=== PATIENT | female | born 1970 | race African-American/Black ===

== ENCOUNTER 2020-01-12 10:36 | Emergency (ER) | payer MEDICARE, MEDICAID, SELFPAY ==
[2020-01-12 10:42] VITALS: BP 178/101; PULSE 98; RESP 20; TEMP 36.3; O2SAT 98
--- NOTE | 2020-01-12 10:53 | ED.GENADULT ---
HPI - General Adult General Chief complaint: Extremity Problem,Nontraumatic Stated complaint: nerve pain Time Seen by Provider: 01/12/20 10:37 Source: patient Mode of arrival: ambulatory Limitations: no limitations History of Present Illness HPI narrative: 49 y/o AA female. PMH includes: See Chart. Presents to clinic today with acute complaints of low back pain, intermittently radiating down LT posterior buttock and thigh, for past 72 hours. She reports a lot of trouble with her sciatic nerve all the time . She denies acute injuries or fall. She is ambulatory in room, gait steady. No loss of lower extremity or bowel/bladder control. She takes [place] for chronic pain, but notes it isn't helping much . She has not yet sought out care from her PCP, although called and is still waiting for them to call back . Pain worse with prolonged sitting or standing. No additional acute c/o upon PE. Related Data Home Medications Medication Instructions Recorded Confirmed albuterol sulfate [Ventolin HFA] INHALATION 01/12/20 alprazolam 01/12/20 amlodipine 01/12/20 baclofen mg 01/12/20 buspirone mg 01/12/20 escitalopram oxalate mg 01/12/20 fluticasone propion-salmeterol INHALATION 01/12/20 [Advair Diskus] hydrocodone-acetaminophen tablet 01/12/20 metformin mg 01/12/20 montelukast mg 01/12/20 naproxen 01/12/20 Allergies Allergy/AdvReac Type Severity Reaction Status Date / Time haloperidol Allergy Severe Verified 06/10/18 09:56 Penicillins Allergy Mild HIVES, Verified 06/10/18 09:56 ITCHING amoxicillin Allergy Unknown HIVES, Verified 06/10/18 09:56 ITCHING Sulfa (Sulfonamide Allergy Unknown HIVES, Verified 06/10/18 09:56 Antibiotics) ITCHING Contrast Media Allergy Unknown HIVES Uncoded 06/10/18 09:56 Review of Systems Review of Systems: Narrative: CONSTITUTIONAL: Denies fever, chills, sweats. EYES: Denies visual changes, redness, discharge. ENT: Denies rhinorrhea, congestion, sore throat, otalgia. CARDIOVASCULAR: Denies chest pain, palpitations, edema. RESPIRATORY: Denies dyspnea, wheezing, cough GASTROINTESTINAL: Denies abdominal pain, nausea, vomiting, diarrhea. GENITOURINARY: Denies dysuria, hematuria, abnormal discharge SKIN: Denies rash or itching. MUSCULOSKELETAL: Back pain, no myalgia. NEUROLOGIC: Denies numbness, or focal weakness. PSYCHIATRIC: Denies anxiety or depression. All systems reviewed & are unremarkable except as noted in HPI and below Exam Narrative: Exam Narrative: GENERAL: This is a well-nourished, well-developed patient, in no apparent distress. Obese. HEAD: normocephalic, atraumatic. EYES: PERRL. Sclera clear/white. Vision is grossly intact. EARS: External ears normal, auditory canals clear and without drainage, TMs normal without perforation. Hearing grossly intact. NOSE: External nose normal with no obvious nasal discharge, nares without redness, no rhinorrhea. THROAT: Mucous membranes moist, posterior pharynx clear. NECK: Neck supple, non-tender without lymphadenopathy, masses or thyromegaly. CARDIOVASCULAR: Regular rate and rhythm without murmurs, gallops, or rubs. Pulses intact BLE. RESPIRATORY: Clear to auscultation. Breath sounds equal bilaterally. No wheezes, rales, or rhonchi. GASTROINTESTINAL: Abdomen soft, non-tender, nondistended. Bowel sounds are active. No guarding. Full abdominal PE slightly limited due to increased body habitus. SKIN: warm, intact with no suspicious lesions or rash, good texture and turgor. NEURO: awake, alert, and oriented to person, place and time. There were no obvious focal neurologic abnormalities. Steady gait. Sensation is intact. No saddle paraesthesia. EXTREMITIES: Normal range of motion. No edema. No calf tenderness. Negative Homans sign bilaterally. MUSCULOSKELETAL: SLR test positive LT at 45 degree. RT SLR negative. No bony deformity, tenderness. ROM fully preserved. BACK: Nontender without deformity or crepitance. No flank tenderness. Gl
== END 2020-01-12 11:14 | disposition home or self-care (01) ==
PROVIDERS: Emergency Provider Nurse Practitioner Adult Health
DX: M54.42 Lumbago with sciatica, left side (principal)
CPT/HCPCS: 99213; G0463

== ENCOUNTER 2020-09-24 16:27 | Emergency (ER) | payer MEDICARE, MEDICAID, SELFPAY ==
[2020-09-24 16:36] VITALS: BP 181/100; PULSE 101; RESP 16; TEMP 37.3; O2SAT 100
[2020-09-24 16:38] VITALS: BP 181/100; PULSE 101; RESP 16; TEMP 37.3; O2SAT 100
--- NOTE | 2020-09-24 16:40 | ED.EAR ---
HPI - Ear Problem General Chief complaint: Ear Stated complaint: EAR PAIN Time Seen by Provider: 09/24/20 16:40 Source: patient and RN notes reviewed Mode of arrival: ambulatory Limitations: no limitations History of Present Illness HPI Narrative: 49-year-old female presents to the [facility] with complaints of right ear pain. Patient states the pain was sudden onset yesterday. Patient takes Percocet however does not taking care of all of her pain. Patient does have a history of hypertension. States that she will take her medication when she gets home. Denies any blurry vision or change in vision. No headaches. Related Data Home Medications Medication Instructions Recorded Confirmed albuterol sulfate [Ventolin HFA] INHALATION 01/12/20 alprazolam 01/12/20 amlodipine 01/12/20 baclofen mg 01/12/20 buspirone mg 01/12/20 escitalopram oxalate mg 01/12/20 fluticasone propion-salmeterol INHALATION 01/12/20 [Advair Diskus] hydrocodone-acetaminophen tablet 01/12/20 metformin mg 01/12/20 montelukast mg 01/12/20 naproxen 01/12/20 diazepam 09/24/20 ergocalciferol (vitamin D2) 09/24/20 omeprazole 09/24/20 oxycodone-acetaminophen 09/24/20 Allergies Allergy/AdvReac Type Severity Reaction Status Date / Time haloperidol Allergy Severe Verified 06/10/18 09:56 Penicillins Allergy Mild HIVES, Verified 06/10/18 09:56 ITCHING amoxicillin Allergy Unknown HIVES, Verified 06/10/18 09:56 ITCHING Sulfa (Sulfonamide Allergy Unknown HIVES, Verified 06/10/18 09:56 Antibiotics) ITCHING Contrast Media Allergy Unknown HIVES Uncoded 06/10/18 09:56 Review of Systems Review of Systems: All systems reviewed & are unremarkable except as noted in HPI and below Constitutional: Constitutional: Reports no additional constitutional complaints, Denies chills and Denies fever(s) Eyes: Eyes: Reports no additional eye complaints, Denies change in vision and Denies photophobia ENT: Reports as per HPI, Denies dizziness, Denies nasal congestion and Denies sore throat Comments: Right ear pain Cardiovascular: Cardiovascular: Reports no additional cardiovascular complaints and Denies chest pain Respiratory: Respiratory: Reports no additional respiratory complaints, Denies cough and Denies dyspnea Musculoskeletal: Musculoskeletal: Reports no additional musculoskeletal complaints Integumentary/Breasts: Skin/Breast: Reports system reviewed and no additional complaints, except as docu Neurologic: Reports system reviewed and no additional complaints, except as documented, Denies dizziness, Denies headache(s), Denies focal weakness, Denies numbness and Denies weakness Psychiatric: Psychiatric: Reports no additional psychiatric complaints Allergic/Immunologic: Allergic/Immunologic: Reports no additional allergic/immunologic complaints PMFSH Comments At the time of my signature, I reviewed and agree with the nursing past medical, surgical, social, and family history. There is no relevant family history pertinent to the patient complaint. Exam Const: General: alert and ill appearing acutely Nutritional Appearance: well nourished and obese Orientation/consciousness: patient oriented x3 HENMT: Head: normal to inspection Ears: external ears normal, TM normal on the left, EAC's normal and TM abnormal bulging on the right and erythematous on the right General nose exam: Normal external nose present and Normal nares present Face and sinus: normal facial exam Mouth: Yes Normal oral and palatal mucosa present Eyes: Conjunctivae: conjunctivae normal Pupils: Equal, round and reactive pupils present Neck: Neck: normal visual inspection, no lymphadenopathy and no meningeal signs Chest: Chest palpation & inspection: normal inspection of the chest Resp: Effort & Inspection: normal respiratory effort Auscultation: clear to auscultation bilaterally Cardio: Rate: regular rate Rhythm: regular rhythm Back/Spine/Pelvis: Back
[2020-09-24 16:54] VITALS: BP 184/96
== END 2020-09-24 16:54 | disposition home or self-care (01) ==
PROVIDERS: Emergency Provider Nurse Practitioner
DX: H66.001 Acute suppurative otitis media without spontaneous rupture of ear drum, right ear (principal); I10 Essential (primary) hypertension; J45.909 Unspecified asthma, uncomplicated; K21.9 Gastro-esophageal reflux disease without esophagitis; M19.90 Unspecified osteoarthritis, unspecified site; E11.9 Type 2 diabetes mellitus without complications
CPT/HCPCS: 99213; G0463

== ENCOUNTER 2020-12-12 11:42 | Emergency (ER) | payer MEDICARE, MEDICAID, SELFPAY ==
--- NOTE | ~2020-12-12 | XR_ITS ---
EXAMINATION: XR chest 2V DATE: 12/12/2020 13:50 INDICATION: Left shoulder pain. Fall. TECHNIQUE: Frontal and lateral views of the chest were obtained. COMPARISON: Chest 2 views 12/15/2013 FINDINGS: The chest demonstrates clear lungs without pneumonia, pleural effusion, or pneumothorax. Th e heart size is normal. IMPRESSION: 1. No acute cardiopulmonary disease. Reviewed, dictated and finalized at location A.
--- NOTE | ~2020-12-12 | XR_ITS ---
XR shoulder LT min 2V DATE: 12/12/2020 13:50 INDICATION: Left shoulder pain following injury from fall TECHNIQUE: 4 views COMPARISON: None FINDINGS: No fracture or dislocation, periosteal reaction or bone destruction. No abnormal soft tiss ue calcification. IMPRESSION: No significant abnormality Reviewed, dictated and finalized at location A. IMPRESSION: No significant abnormality
--- NOTE | ~2020-12-12 | CT_ITS ---
EXAMINATION: CT thoracic spine wo con DATE: 12/12/2020 14:04 INDICATION: Thoracic back pain. Fall. TECHNIQUE: Computed tomography (CT) of the thoracic spine was performed without intravenous contrast. Automated exposure control and iterative reconstruction technique were employed. The dose-length pro duct was 1424.10 mGy-cm. COMPARISON: None FINDINGS: There is 4 degrees levocurvature of thoracic spine. T4 is a butterfly segment. There is mil d chronic anterior wedging of T5, T6, and L1 vertebral bodies. There is mildly decreased disc height from T5-T6 through T10-T11. There is multilevel mild facet joint osteoarthritis. There is no neural f oraminal stenosis or central canal stenosis. IMPRESSION: 1. No fracture. 2. Mild thoracic spondylosis. Reviewed, dictated and finalized at location A.
--- NOTE | ~2020-12-12 | XR_ITS ---
EXAMINATION: XR knee LT min 4V DATE: 12/12/2020 13:51 INDICATION: Left knee pain. TECHNIQUE: 4 views of left knee were obtained. COMPARISON: Left knee radiographs 04/07/2004 FINDINGS: Bone alignment is normal. No fracture. There is moderate osteoarthritis of medial and tinsley lofemoral compartments and mild osteoarthritis of lateral compartment. There is a small knee joint ef fusion. IMPRESSION: 1. Moderate left knee osteoarthritis. 2. Small left knee joint effusion. Reviewed, dictated and finalized at location A.
--- NOTE | ~2020-12-12 | XR_ITS ---
EXAMINATION: XR hip LT min 3V w AP pelvis DATE: 12/12/2020 13:50 INDICATION: Left hip pain. Fall. TECHNIQUE: An anteroposterior view of the pelvis and 3 views of left hip were obtained. COMPARISON: None. FINDINGS: Bone alignment is normal. No fracture. There is mild osteoarthritis of the hips. IMPRESSION: 1. Mild osteoarthritis of the hips. Reviewed, dictated and finalized at location A.
--- NOTE | ~2020-12-12 | CT_ITS ---
EXAMINATION: CT cervical spine wo con DATE: 12/12/2020 14:03 INDICATION: Neck pain post fall TECHNIQUE: Computed tomography (CT) of the cervical spine was performed without intravenous contrast. Automated exposure control and iterative reconstruction technique were employed. The dose-length pro duct was 551.18 mGy-cm. COMPARISON: None FINDINGS: Straightening of the normal cervical lordosis likely positional related to the presence of a cervical collar. No spondylolisthesis or facet subluxation. Vertebral body heights are normal. No fracture. M ild disc height loss at C4-C5. Minimal to mild cervical facet osteoarthritis most prominent on the le ft at C3-C4. Minimal ossification at the posterior longitudinal ligament at C6-C7 resulting in minima l central canal stenosis at this level. No significant neural foraminal stenosis. Visualized cervical soft tissues and apices of lungs are unremarkable. IMPRESSION: 1. Minimal to mild cervical spondylosis. No acute osseous abnormality. Reviewed, dictated and finalized at location B.
[2020-12-12 12:09] VITALS: BP 158/104; PULSE 103; RESP 20; TEMP 36.2; O2SAT 100
--- NOTE | 2020-12-12 13:18 | PC.NURSE ---
Pt to xray
--- NOTE | 2020-12-12 13:37 | PC.NURSE ---
Pt still in imaging.
--- NOTE | 2020-12-12 13:37 | ED.FALL ---
HPI - Fall General Chief Complaint: Fall Stated Complaint: fall - left leg & shoulder injury Time Seen by Provider: 12/12/20 12:31 Source: patient Mode of arrival: wheelchair Limitations: no limitations History of Present Illness HPI Narrative: This is a 50 year old female that presents to the ER after a fall today. Reports she was walking down the stairs and slipped and fell. Reports she fell down about 4 steps. Denies hitting her head or loss of consciousness. Reports since she has had left shoulder, left knee and left hip pain. Also reports neck and mid back pain. Reports history of COPD and that she is currently having some wheezing as well. Reports her daughter was at work and unable to come help her right away, so she sat on the floor for a couple hours. Denies vision changes, vomiting, numbness, or weakness. Related Data Home Medications Medication Instructions Recorded Confirmed albuterol sulfate [Ventolin HFA] INHALATION 01/12/20 10/11/20 alprazolam 01/12/20 10/11/20 amlodipine 01/12/20 10/11/20 buspirone mg 01/12/20 10/11/20 escitalopram oxalate mg 01/12/20 10/11/20 fluticasone propion-salmeterol INHALATION 01/12/20 10/11/20 [Advair Diskus] hydrocodone-acetaminophen tablet 01/12/20 10/11/20 metformin mg 01/12/20 10/11/20 montelukast mg 01/12/20 10/11/20 naproxen 01/12/20 10/11/20 diazepam 09/24/20 10/11/20 ergocalciferol (vitamin D2) 09/24/20 10/11/20 omeprazole 09/24/20 10/11/20 oxycodone-acetaminophen 09/24/20 10/11/20 esomeprazole magnesium 40 mg 40 mg PO DAILY 09/28/20 10/11/20 capsule,delayed release Allergies Allergy/AdvReac Type Severity Reaction Status Date / Time haloperidol Allergy Severe Unknown Verified 10/11/20 08:03 Penicillins Allergy Mild HIVES, Verified 10/11/20 08:03 ITCHING amoxicillin Allergy Unknown HIVES, Verified 10/11/20 08:03 ITCHING Sulfa (Sulfonamide Allergy Unknown HIVES, Verified 10/11/20 08:03 Antibiotics) ITCHING Contrast Media Allergy Unknown HIVES Uncoded 10/11/20 08:03 Review of Systems Review of Systems: CONSTITUTIONAL: Denies fever EYES: Denies visual changes CARDIOVASCULAR: Denies chest pain RESPIRATORY: Denies dyspnea. GASTROINTESTINAL: Denies vomiting MUSCULOSKELETAL: Reports back pain, joint pain, and myalgia. NEUROLOGIC: Denies numbness, or weakness. All systems reviewed & are unremarkable except as noted in HPI and below PMFSH Past Medical History Medical History (Updated 12/12/20 @ 15:25 by Zora Mckeon PA-C) Anxiety COPD (chronic obstructive pulmonary disease) GERD (gastroesophageal reflux disease) Hypertension Family History Family History Father Lung cancer Hypertension Mother Hypertension Depression Heart disease Thyroid disorder Sibling Hypertension Depression Heart disease Thyroid disorder Other Hypertension Grandparent Carcinoma of colon Hypertension Grandparent Hypertension Social History Social History Tobacco type: cigarettes Alcohol intake: never Substance use: never Substance use type: does not use Exam Narrative: GENERAL: Well-appearing, obese, and in no acute distress. HEAD: Normocephalic, atraumatic. EYES: PERRLA and EOMI. ENT: Nares clear, no rhinorrhea or epistaxis. Mucous membranes moist. Oropharynx without tonsillar hypertrophy exudate or other lesions. Bilateral TMs pearly jackson non-bulging NECK: Supple. No adenopathy or masses. Tender to palpation of midline cervical spine CHEST: Clear to auscultation. No respiratory distress. No wheezes rales or rhonchi HEART: Regular rate and rhythm. No murmur heard. Normal peripheral pulses. BACK: Tender to palpation of midline thoracic spine. Nontender to palpation of midline lumbar spine EXTREMITIES: Normal range of motion. No edema or obvious deformity. Strength equal in bilateral upper and lower extremities (5/
[2020-12-12 14:00] LABS: Basophils Absolute Auto 0.1 K/mm3 (0.0-0.1); Basophils Percent Auto 0.7 % (0.2-1.2); Eosinophils Absolute Auto 0.1 K/mm3 (0-0.3); Eosinophils Percent Auto 1.1 % (0-4.4); Hematocrit 41.9 % (37.0-47.0); Immature Granulocyte Absolute 0.02 K/mm3 (0.00-0.031); Immature Granulocyte Percent A 0.3 % (0-0.5); Lymphocytes Absolute Auto 3.29 K/mm3 (0.9-3.2); Mean Corpuscular Hemoglobin 25.6 pg (26-34); Mean Corpuscular Volume 82.6 fl (80-100); Mean Platelet Volume 10.4 fl (7.4-10.4); Monocytes Absolute Auto 0.5 K/mm3 (0.1-0.6); Monocytes Percent Auto 6.6 % (2.6-8.5); Neutrophils Absolute Auto 3.4 K/mm3 (1.3-6.7); Neutrophils Percent Auto 46.3 % (45.5-73.1); Platelet Count Result 378 k/mm3 (150-375); Red Blood Count 5.07 M/mm3 (4.2-5.4); Red Cell Distribution Width 15.9 % (11.5-14.5); White Blood Count 7.3 K/mm3 (4.5-10.0)
[2020-12-12 14:08] LABS: Anion Gap 10 mmol/L (8-16); Blood Urea Nitrogen 5 mg/dL (7-17); Calcium 9.5 mg/dL (8.4-10.2); Carbon Dioxide 23 mmol/L (22-30); Chloride 107 mmol/L (98-107); Creatine Kinase 179 U/L (30-135); Estimated CRCL calculation 115 ml/min; Estimated Glomerular Filt Rate > 60; Glucose 94 mg/dL (65-110); Potassium 3.8 mmol/L (3.4-5.0); Sodium 140 mmol/L (137-145)
[2020-12-12] MEDS: ALBUTEROL SULFATE (*SP) INHALER 1 PUFF (14:24)
[2020-12-12] MEDS: ALBUTEROL SULFATE (*SP) AEROSOL 1 PUFF 4 PUFF INHALATION (14:24)
[2020-12-12] MEDS: ACETAMINOPHEN 500 MG TABLET 1000 MG PO (14:30)
[2020-12-12 15:40] VITALS: BP 132/78; PULSE 82; RESP 18; O2SAT 96
== END 2020-12-12 15:41 | disposition home or self-care (01) ==
PROVIDERS: Physician Assistant; Emergency Provider Emergency Medicine
DX: S83.92XA Sprain of unspecified site of left knee, initial encounter (principal); J44.9 Chronic obstructive pulmonary disease, unspecified; I10 Essential (primary) hypertension; E11.9 Type 2 diabetes mellitus without complications; F41.9 Anxiety disorder, unspecified; K21.9 Gastro-esophageal reflux disease without esophagitis; Z79.84 Long term (current) use of oral hypoglycemic drugs; F17.210 Nicotine dependence, cigarettes, uncomplicated; M47.814 Spondylosis without myelopathy or radiculopathy, thoracic region; M47.812 Spondylosis without myelopathy or radiculopathy, cervical region; W10.8XXA Fall (on) (from) other stairs and steps, initial encounter
CPT/HCPCS: 36415; 71046; 72125; 72128; 73030; 73502; 73564; 80048; 82550; 85025; 99284; A9270; L0140

== ENCOUNTER 2021-03-09 13:02 | Emergency (ER) | payer MEDICARE, MEDICAID, SELFPAY ==
[2021-03-09 13:14] VITALS: BP 160/88; PULSE 105; RESP 20; TEMP 35.7; O2SAT 99
[2021-03-09 15:19] VITALS: BP 160/93; PULSE 87; RESP 18; TEMP 36.3; O2SAT 97
--- NOTE | 2021-03-09 15:31 | PC.NURSE ---
Pt states she is going to go because her daughter has to go to work and she is her only ride. Pt ambulated to the exit with a walker with no difficulty
== END 2021-03-09 15:31 | disposition left against medical advice (07) ==
DX: R07.81 Pleurodynia (principal)
CPT/HCPCS: 99199

== ENCOUNTER 2021-10-02 11:13 | Inpatient (IN) | payer MEDICARE, MEDICAID, SELFPAY ==
[2021-10-02] VITALS (16 sets, daily range): BP systolic 146–192; BP diastolic 83–128; PULSE 58–646; RESP 18–26; TEMP 36.4–37.6; O2SAT 96–100; BMI 60.0
--- NOTE | ~2021-10-02 | XR_ITS ---
EXAMINATION: XR chest 1V portable DATE: 10/02/2021 13:26 INDICATION: Chest pain and cough. COVID. TECHNIQUE: frontal and lateral views of the chest were obtained. COMPARISON: Chest radiograph dated 12/12/2020 FINDINGS: The lungs remain clear with no focal airspace opacities, pulmonary edema, pleural effusion or pneumot horax. The cardiomediastinal silhouette is normal. Visualized bones and soft tissues are unremarkable . IMPRESSION: 1. No acute cardiopulmonary disease. Reviewed, dictated and finalized at location A.
--- NOTE | 2021-10-02 12:40 | ECG_ITS ---
Measurements Intervals [place] Rate: 62 P: 109 ME: 164 QRS: 186 QRSD: 106 T: 186 QT: 408 QTc: 416 Interpretive Statements SINUS RHYTHM LIMB LEAD REVERSAL DELAYED PRECORDIAL R/S TRANSITION BORDERLINE ST-T WAVE ABNORMALITY- ANTEROLAT/INF LEADS BORDERLINE ECG Electronically Signed On 10-02-2021 13:05:02 CDT by Kingsley Esparza D.O.
--- NOTE | 2021-10-02 12:52 | PC.NURSE ---
patient is declining the IV at this time, only requests her blood drawn and no IV placed at this time.
--- NOTE | 2021-10-02 13:10 | ED.GENADULT ---
HPI - General Adult General Chief complaint: Upper Respiratory Infection Stated complaint: covid+, chest pain with breathing Time Seen by Provider: 10/02/21 12:40 Source: RN notes reviewed History of Present Illness HPI narrative: Patient presents emergency room from home for COVID-19. Patient states she tested positive for COVID-19 approximately 1 week ago. States that she took Paxlovid following the end of her treatment she began to feel sick again states that she has been having wheezing throughout her lungs and has been using her inhaler at home with minimal relief. Patient also states that she has been having some mild chest pain with coughing and deep inspiration she denies any fevers or chills abdominal pain nausea vomiting or any other symptoms Related Data Home Medications Medication Instructions Recorded Confirmed albuterol sulfate 90 mcg/actuation inhalation 01/12/20 10/11/20 aerosol inhaler (Ventolin HFA) alprazolam 0.25 mg tablet 01/12/20 10/11/20 amlodipine 10 mg tablet 01/12/20 10/11/20 fluticasone 500 mcg-salmeterol 50 inhalation 01/12/20 10/11/20 mcg/dose blistr powdr for inhalation (Advair Diskus) hydrocodone 10 mg-acetaminophen tablet 01/12/20 10/11/20 325 mg tablet metformin 850 mg tablet mg 01/12/20 10/11/20 montelukast 10 mg tablet mg 01/12/20 10/11/20 diazepam 5 mg tablet 09/24/20 10/11/20 ergocalciferol (vitamin D2) 1,250 09/24/20 10/11/20 mcg (50,000 unit) capsule omeprazole 20 mg capsule,delayed 09/24/20 10/11/20 release Allergies Allergy/AdvReac Type Severity Reaction Status Date / Time haloperidol Allergy Severe Unknown Verified 10/02/21 12:39 Penicillins Allergy Mild HIVES, Verified 10/02/21 12:39 ITCHING amoxicillin Allergy Unknown HIVES, Verified 10/02/21 12:39 ITCHING Sulfa (Sulfonamide Allergy Unknown HIVES, Verified 10/02/21 12:39 Antibiotics) ITCHING Contrast Media Allergy Unknown HIVES Uncoded 10/02/21 12:39 Review of Systems Review of Systems: Gen.: Denies fevers or chills ENT: Denies congestion Respiratory: reports COVID-19 and cough CV: Reports chest pain with coughing and deep inspiration GI: Denies abdominal pain nausea, emesis or diarrhea Musculoskeletal: Denies back pain or muscle pain Neuro: Denies numbness, tingling, weakness or focal weakness Skin: Denies rash Except as documented, all other systems reviewed and negative [facility] Past Medical History Medical History Anxiety COPD (chronic obstructive pulmonary disease) GERD (gastroesophageal reflux disease) Hypertension Family History Family History Father Lung cancer Hypertension Mother Hypertension Depression Heart disease Thyroid disorder Sibling Hypertension Depression Heart disease Thyroid disorder Other Hypertension Grandparent Carcinoma of colon Hypertension Grandparent Hypertension Social History Social History Tobacco type: cigarettes Alcohol intake: never Substance use: never Substance use type: does not use Exam Narrative: APPEARANCE: No acute distress, nontoxic, resting in bed EYES: EOMI HEENT: Normocephalic, atraumatic, OMM RESPIRATORY: No respiratory distress wheezing throughout the bilateral upper lung christine with decreased breath sounds in the bases CARDIOVASCULAR: Regular rate and rhythm without murmurs rubs or gallops. ABDOMINAL: Soft, nontender, nondistended, no rebound or guarding MUSCULOSKELETAl: Moves all extremities. No clubbing, cyanosis or edema. NEURO: Awake and alert. Following commands, speech normal, no focal deficits SKIN:: Warm, dry. No rashes lesions or abrasions PSYCHIATRIC: Normal affect/mood, Course Course Emergency Course: Patient given breathing treatments in ED states. Still states she is feeling short of breath. Wheezing noted i
[2021-10-02 13:34] LABS: Basophils Percent Auto 0.2 % (0.2-1.2); Hematocrit 42.5 % (37.0-47.0); Hemoglobin 12.7 g/dL (12.0-15.0); Immature Granulocyte Absolute 0.04 K/mm3 (0.00-0.031); Immature Granulocyte Percent A 0.4 % (0-0.5); Lymphocytes Absolute Auto 3.84 K/mm3 (0.9-3.2); Lymphocytes Percent Auto 35.4 % (18.3-44.2); Mean Corpuscular HGB Conc 29.9 g/dl (32-36); Mean Corpuscular Hemoglobin 25.1 pg (26-34); Mean Corpuscular Volume 84.2 fl (80-100); Mean Platelet Volume 9.9 fl (7.4-10.4); Monocytes Absolute Auto 0.9 K/mm3 (0.1-0.6); Monocytes Percent Auto 7.8 % (2.6-8.5); Neutrophils Absolute Auto 6.1 K/mm3 (1.3-6.7); Neutrophils Percent Auto 56.2 % (45.5-73.1); Platelet Count Result 418 k/mm3 (150-375); Red Blood Count 5.05 M/mm3 (4.2-5.4); Red Cell Distribution Width 15.5 % (11.5-14.5); White Blood Count 10.9 K/mm3 (4.5-10.0)
[2021-10-02] MEDS: IPRATROPIUM BR 0.02% INH SOLN 0.5 MG/2.5 ML VIAL INHALATION ×3 (13:44→20:23)
[2021-10-02] MEDS: ALBUTEROL SULFATE NEB 2.5 MG/3 ML INH 5 MG INHALATION ×3 (13:44→20:23)
[2021-10-02 13:45] LABS: Partial Thromboplastin Time 24.1 SECONDS (22.3-36.8); Prothrombin Time 12.3 Seconds (11.1-14.7)
[2021-10-02 13:50] LABS: Hypochromasia 1+ (NORMAL); Microcytosis 1+ (NORMAL); Ovalocytes 1+ (NORMAL); Poikilocytosis 1+ (NORMAL); Target Cells 1+ (NORMAL)
[2021-10-02 13:54] LABS: Troponin I < 0.012 ng/mL (0.000-0.034)
[2021-10-02 14:07] LABS: D Dimer 0.35 ug/mL (<0.48)
[2021-10-02 14:23] LABS: Alanine Aminotransferase 30 U/L (6-35); Albumin Level 4.4 g/dL (3.5-5.1); Alkaline Phosphatase 82 U/L (38-126); Anion Gap 8 mmol/L (8-16); Aspartate Amino Transferase 25 U/L (14-36); Bilirubin,Total 0.3 mg/dL (0.2-1.3); Blood Urea Nitrogen 11 mg/dL (7-17); CRP < 0.5 mg/dL (<1.0); Calcium 8.9 mg/dL (8.4-10.2); Carbon Dioxide 30 mmol/L (22-30); Chloride 103 mmol/L (98-107); Estimated CRCL calculation 107 ml/min; Estimated Glomerular Filt Rate > 60; Glucose 104 mg/dL (65-110); Lactate Dehydrogenase 384 U/L (313-618); Lipase 48 U/L (23-300); Potassium 3.8 mmol/L (3.4-5.0); Sodium 141 mmol/L (137-145)
[2021-10-02] MEDS: SODIUM CHLORIDE 0.9% IV 1,000 ML 999 ML IV CONT (15:00)
[2021-10-02] MEDS: methylPREDNISolone SOD SUCC 125 MG VIAL IV PUSH (15:00)
[2021-10-02 16:47] LABS: Troponin I < 0.012 ng/mL (0.000-0.034)
--- NOTE | 2021-10-02 17:37 | PC.NURSE ---
Patient's walking pulse ox on Room Air is 96%. patient walked with cane at this time. EDP aware.
--- NOTE | 2021-10-02 18:30 | PM.IMHP ---
H&P: HPI History of Present Illness Date/Time: 10/02/21 18:30 <Tracey Goldsmith PA-C - Last Filed: 10/02/21 22:54> Chief Complaint: Shortness of breath. <Tracey Goldsmith PA-C - Last Filed: 10/02/21 22:54> Narrative: This is a 50-year-old female smoker with COPD, sleep apnea, hypertension, and prediabetes who presented to the emergency department from home for evaluation shortness of breath. She was diagnosed with COVID last week and was prescribed Paxlovid on 09/25/2021. She felt quite a bit better the 1st 3 days after starting the drug however her symptoms rebounded for a few days before improving once again. Her headache, body aches, and fever have resolved though she continues to have a cough that is occasionally productive of clear phlegm and significant wheezing as well as progressive dyspnea on lesser and lesser exertion. Chest x-ray today was normal and she is still testing positive for SARS-CoV-2 by PCR. She feels a bit better after receiving a dose of Solu-Medrol and nebulizer though she continues to wheeze and she is being admitted in this setting for further treatment. <Tracey Goldsmith PA-C - Last Filed: 10/02/21 22:54> Review of Systems Review of Systems: Twelve systems were reviewed. COVID symptoms as detailed above are improving. She has some mild chest tightness with her shortness of breath. The pain is not pleuritic. She denies syncope and presyncope. No lower extremity edema or calf pain. No history of venous thromboembolism. Appetite has been decreased since being diagnosed with COVID however she is hungry at this time. No vomiting. Except as documented, all other systems were reviewed and are negative. <Tracey Goldsmith PA-C - Last Filed: 10/02/21 22:54> [facility] Past Medical History Medical History: Medical History (Updated 10/02/21 @ 22:47 by Tracey Goldsmith PA-C) Anxiety Chronic obstructive pulmonary disease Gastroesophageal reflux disease Hypertension Morbid obesity Obstructive sleep apnea Prediabetes Tobacco abuse <Tracey Goldsmith PA-C - Last Filed: 10/02/21 22:54> Surgical History Surgical History: Surgical History (Updated 10/02/21 @ 22:43 by Tracey Goldsmith PA-C) History of arthroscopy of both knees History of cholecystectomy History of detached retina repair History of endometrial ablation History of salpingectomy Related to ectopic . History of tubal ligation <Tracey Goldsmith PA-C - Last Filed: 10/02/21 22:54> Family History Family History: Family History Father Lung cancer Hypertension Mother Hypertension Depression Heart disease Thyroid disorder Sibling Hypertension Depression Heart disease Thyroid disorder Other Hypertension Grandparent Carcinoma of colon Hypertension Grandparent Hypertension <Tracey Goldsmith PA-C - Last Filed: 10/02/21 22:54> Social History Social History: Social History (Updated 10/02/21 @ 22:44 by Tracey Goldsmith PA-C) Social History: Surrogate medical decision maker: Linda Conley, daughter. Code status: Smoking packs per day: 0.5 Smoking cigarettes per day: 10.0 Years smoked: 25 Smoking pack-years: 12.50 Smoking status: Current every day smoker Tobacco type: cigarettes Alcohol intake: never Substance use: never Substance use type: does not use Living arrangements: with family Additional occupation/education comments: Disabled. Spiritual care concerns: No <Tracey Goldsmith PA-C - Last Filed: 10/02/21 22:54> Meds Home Medications and Allergies Home medications: Home Medications Medication Instructions Recorded Confirmed Type albuterol sulfate 90 mcg/actuation 2 inh inhalation QID PRN SOB 01/12/20 10/02/21 History aerosol inhaler (Ventolin HFA) fluticasone 500 mcg-salmeterol 50 1 inh inhalation 2XD 01/12/20 10/02/21 History mcg/dose blist
[2021-10-02 19:01] LABS: SARS-CoV-2 RNA PCR Positive
--- NOTE | 2021-10-02 20:24 | ADMGEN ---
This patient, Fariba Conley, was admitted to Medical Room 342-01. Patient/family oriented to hospital policies and general routines including ID bracelet, bed and alarms, visiting hours, pain management, procedures, bathroom and other care routines, personal items, smoking policy, room service/diet, and visiting hours. Information on how to activate the Rapid Response Team has been discussed. Patient/Family are encouraged to report perceived risks to care and to ask questions if they do not understand what they are told or what they should do.
[2021-10-02 20:51] LABS: Troponin I < 0.012 ng/mL (0.000-0.034)
[2021-10-03] VITALS (11 sets, daily range): BP systolic 175–196; BP diastolic 79–92; PULSE 56–80; RESP 20–28; TEMP 36.4–36.8; O2SAT 97–99
[2021-10-03] MEDS: methylPREDNISolone SOD SUCC 125 MG VIAL 60 MG IV PUSH ×3 (00:38→14:01)
[2021-10-03] MEDS: IPRATROPIUM BR 0.02% INH SOLN 0.5 MG/2.5 ML VIAL INHALATION ×4 (02:30→20:45)
[2021-10-03] MEDS: ALBUTEROL SULFATE NEB 2.5 MG/3 ML INH 5 MG INHALATION ×4 (02:30→20:45)
[2021-10-03] MEDS: ACETAMINOPHEN 325 MG TABLET 650 MG PO (05:33)
[2021-10-03 05:46] LABS: Basophils Percent Auto 0.1 % (0.2-1.2); Hematocrit 41.8 % (37.0-47.0); Hemoglobin 13.1 g/dL (12.0-15.0); Immature Granulocyte Absolute 0.08 K/mm3 (0.00-0.031); Immature Granulocyte Percent A 0.7 % (0-0.5); Lymphocytes Percent Auto 22.8 % (18.3-44.2); Mean Corpuscular HGB Conc 31.3 g/dl (32-36); Mean Corpuscular Hemoglobin 25.6 pg (26-34); Mean Corpuscular Volume 81.6 fl (80-100); Mean Platelet Volume 9.9 fl (7.4-10.4); Monocytes Absolute Auto 0.1 K/mm3 (0.1-0.6); Monocytes Percent Auto 1.1 % (2.6-8.5); Neutrophils Absolute Auto 8.6 K/mm3 (1.3-6.7); Neutrophils Percent Auto 75.3 % (45.5-73.1); Platelet Count Result 434 k/mm3 (150-375); Red Blood Count 5.12 M/mm3 (4.2-5.4); Red Cell Distribution Width 15.1 % (11.5-14.5); White Blood Count 11.4 K/mm3 (4.5-10.0)
[2021-10-03 06:02] LABS: Alanine Aminotransferase 29 U/L (6-35); Albumin Level 4.5 g/dL (3.5-5.1); Alkaline Phosphatase 68 U/L (38-126); Anion Gap 12 mmol/L (8-16); Aspartate Amino Transferase 26 U/L (14-36); Bilirubin,Total 0.5 mg/dL (0.2-1.3); Blood Urea Nitrogen 14 mg/dL (7-17); Calcium 9.6 mg/dL (8.4-10.2); Carbon Dioxide 24 mmol/L (22-30); Chloride 104 mmol/L (98-107); Estimated CRCL calculation 145 ml/min; Estimated Glomerular Filt Rate > 60; Glucose 136 mg/dL (65-110); Potassium 5.1 mmol/L (3.4-5.0); Sodium 140 mmol/L (137-145)
[2021-10-03] MEDS: FLUTICASONE/SALMETEROL 230-21 MCG INHALER 1 PUFF 2 PUFF INHALATION (07:48)
[2021-10-03 09:00] LABS: Glucose Point of Care 152 mg/dl (65-105)
[2021-10-03] MEDS: PANTOPRAZOLE 40 MG TABLET PO (10:11)
[2021-10-03] MEDS: guaiFENesin 12 HR 600 MG TABCR PO ×2 (10:11→21:50)
[2021-10-03] MEDS: MONTELUKAST SODIUM 10 MG TABLET PO (10:11)
--- NOTE | 2021-10-03 10:33 | PM.IMPN ---
Progress Note: A&P Assessment and Plan (1) COPD exacerbation: Code(s): J44.1 - Chronic obstructive pulmonary disease with (acute) exacerbation Status: Acute Assessment and Plan: Precipitated by ongoing tobacco abuse and COVID-19. Continue scheduled bronchodilators and Solu-Medrol. 10/03: Improving on Solu-Medrol 60 mg Q 8, will transition to prednisone 60 mg and taper from there starting tomorrow, will also start patient on a LAMA, Incruse Ellipta, and continue outpatient Advair, recommend outpatient PFTs, cont mucinex prn and nebulizers. Consult to pulmonology placed for PFTs and follow up. (2) COVID-19: Code(s): U07.1 - COVID-19 Status: Acute Assessment and Plan: She completed a course of Paxlovid yesterday. No evidence of pneumonia on imaging. Inflammatory markers are reassuring. 10/03: Would likely benefit from 10 day course of decadron, will start tomorrow as day 3 since she received solumedrol yesterday and today. (3) Tobacco abuse: Code(s): Z72.0 - Tobacco use Status: Acute Assessment and Plan: Smoking cessation is imperative and was discussed. She declines the need for a nicotine patch. (4) Hypertension: Code(s): I10 - Essential (primary) hypertension Status: Acute Assessment and Plan: Blood pressures were reviewed and they have been running high. We will continue with her antihypertensives and monitor closely, making adjustments if needed. 10/03: Currently on Norvasc 10 mg daily, based on A1c, would recommend a combination of lisinopril and hydrochlorothiazide instead, especially if patient has bilateral lower extremity lymphedema. Will d/c norvasc and start lisinopril/HCTZ. (5) Prediabetes: Code(s): R73.03 - Prediabetes Status: Acute Assessment and Plan: Initiate sliding scale insulin, Accu-Cheks, and hypoglycemic protocol. 10/03: A1c was 5.7, will d/c accuchecks and SSI per patient request, check BG once daily with am BMPs since patient is on steroids Subjective Date/time seen: 10/03/21 10:33 Interval history: Patient sitting up, eating. She is somewhat dyspneic with conversation and eating. She states she feels a little better than when she came in but still quite short of breath.? No overnight events noted.? No chest pain.? No nausea, vomiting or diarrhea.? No fevers or chills. Review of Systems Review of Systems: ?12 point review of systems was assessed and was negative except as noted in the HPI Exam Narrative: General:? No acute distress, alert and oriented per baseline HEENT:? Atraumatic, normocephalic, mucous membranes moist CV:? Regular rate and rhythm, S1, S2 Lungs:? Poor air entry throughout, very tight airways with significant inspiratory and expiratory wheezing Abdomen:? Soft, nontender, nondistended Extremities:? Normal to inspection, bilateral lower extremity nonpitting edema noted Skin:? No rashes noted, no lesions or wounds seen Psych:? Euthymic, normal affect Objective Data Vital Signs Vital Signs: Vital Signs - 24 hr 10/02/21 11:23 10/02/21 12:45 10/02/21 12:50 Temperature 99.6 F 97.6 F Pulse Rate 89 67 Respiratory Rate 18 23 H Blood Pressure 169/86 H 154/93 H Pulse Oximetry 100 98 99 Oxygen Delivery Room Air 10/02/21 13:43 10/02/21 13:57 10/02/21 14:00 Temperature Pulse Rate 76 62 70 Respiratory Rate 26 H 24 H 18 Blood Pressure 146/94 H Pulse Oximetry 97 Oxygen Delivery 10/02/21 15:04 10/02/21 13:01 10/02/21 15:04 Temperature Pulse Rate 64 74 64 Respiratory Rate 26 H 23 H 24 H Blood Pressure 192/90 H 146/128 H 192/90 H Pulse Oximetry 97 97 Oxygen Delivery 10/02/21 17:00 10/02/21 17:14 10/02/21 17:32 Temperature Pulse Rate 68 60 69 Respiratory Rate 18 20 20 Blood Pressure 181/94 H Pulse Oximetry 97 Oxygen Delivery 10/02/21 20:03 10/02/21 20:35 10/02/21 20:44 Temperature 98.1 F Pulse Rate 64 58
[2021-10-03 11:08] LABS: Hemoglobin A1C 5.7 % (<5.7)
[2021-10-03] MEDS: ERGOCALCIFEROL 50,000 UNIT CAPSULE 50000 UNITS PO (11:47)
[2021-10-03] MEDS: amLODIPine BESYLATE 5 MG TABLET 10 MG BY MOUTH (11:47)
[2021-10-03 12:05] LABS: Glucose Point of Care 146 mg/dl (65-105)
--- NOTE | 2021-10-03 12:08 | PC.NURSE ---
Patient is not compliant with medications. Patient refused lovenox injection this morning and only wanted to take half of her amlodipine and metformin. Development Team Lead educated patient on medication compliance and the importance of these 3 medications. Patient still refused the lovenox injection but took all of the other medications.
[2021-10-03] MEDS: HYDROcodone/acetaminophen (*CRX) 10-325 MG TABLET 1 TAB PO (14:00)
--- NOTE | 2021-10-03 14:22 | PC.NURSE ---
Parks Recreation Coordinator called Hospitalist Antonella and left voicemail regarding patients elevated blood pressure. Will call again in 15 minutes.
[2021-10-03] MEDS: BENZONATATE 100 MG CAPSULE 200 MG PO (17:25)
[2021-10-03] MEDS: hydroCHLOROthiazide 12.5 MG CAPSULE PO (17:25)
[2021-10-03] MEDS: FLUTICASONE/SALMETEROL 115-21 MCG INHALER 1 PUFF 2 PUFF INHALATION (20:58)
[2021-10-03] MEDS: hydrALAZINE HCL 20 MG/ML VIAL 10 MG IV PUSH (22:34)
[2021-10-04] VITALS (7 sets, daily range): BP systolic 151–160; BP diastolic 79–88; PULSE 73–88; RESP 20–24; TEMP 36.7–36.9; O2SAT 97–99
[2021-10-04] MEDS: HYDROcodone/acetaminophen (*CRX) 10-325 MG TABLET 1 TAB PO ×2 (01:35→10:35)
[2021-10-04] MEDS: ALBUTEROL SULFATE NEB 2.5 MG/3 ML INH 5 MG INHALATION ×3 (02:30→14:01)
[2021-10-04] MEDS: IPRATROPIUM BR 0.02% INH SOLN 0.5 MG/2.5 ML VIAL INHALATION ×3 (02:30→14:02)
[2021-10-04] MEDS: FLUTICASONE/SALMETEROL 115-21 MCG INHALER 1 PUFF 2 PUFF INHALATION (09:34)
[2021-10-04] MEDS: UMECLIDINIUM BROMIDE 62.5 MCG ELLIPTA 1 PUFF INHALATION (09:35)
[2021-10-04] MEDS: DEXAMETHASONE 2 MG TABLET 6 MG PO (10:32)
[2021-10-04] MEDS: BENZONATATE 100 MG CAPSULE 200 MG PO ×2 (10:33→14:24)
[2021-10-04] MEDS: PANTOPRAZOLE 40 MG TABLET PO (10:34)
[2021-10-04] MEDS: guaiFENesin 12 HR 600 MG TABCR PO (10:34)
--- NOTE | 2021-10-04 10:51 | PC.NURSE ---
During medication pass patient refused metformin, lovenox, hydrochlorothiazide, and singulair. Blunger Machine Operator educated patient on the importance of these medications and their purpose. Patient still refused medication stating her blood sugar has been fine and she does not want to be peeing all day. Patient did say she would take these medications at home, but did not want them here. Blunger Machine Operator informed civil engineering project designer of the situation.
--- NOTE | 2021-10-04 11:06 | PC.NURSE ---
Patient requesting to speak with today's hospitalist about yesterday's hospitalist talking about possible discharge today. Called hospitalist González and left voice message.
--- NOTE | 2021-10-04 13:36 | PC.NURSE ---
Spoke with hospitalist González around 1245 and he stated he would come speak with the patient today.
--- NOTE | 2021-10-04 14:24 | PM.DS ---
DS: Admitting Diagnosis Discharge Date 10/04/2021 Admitting Diagnosis shortness of DS: Discharge Diagnosis Discharge Diagnosis (1) COPD exacerbation: Code(s): J44.1 - Chronic obstructive pulmonary disease with (acute) exacerbation Status: Acute Assessment and Plan: Precipitated by ongoing tobacco abuse and COVID-19. patient started onscheduled bronchodilators and Solu-Medrol. clinically improved. Switched to Decadron at discharge for 10 total days. Continue Advair and Incruse. Follow-up with Pulmonary as outpatient basis Discussed smoking cessation. (2) COVID-19: Code(s): U07.1 - COVID-19 Status: Acute Assessment and Plan: She completed a course of Paxlovid . No evidence of pneumonia on imaging. Inflammatory markers are reassuring. Decadron as ordered (3) Tobacco abuse: Code(s): Z72.0 - Tobacco use Status: Acute Assessment and Plan: Smoking cessation is imperative and was discussed. She declines the need for a nicotine patch. (4) Hypertension: Code(s): I10 - Essential (primary) hypertension Status: Acute Assessment and Plan: Blood pressures were reviewed and they have been running high. she is allergic to SEBASTIAN inhibitor angioedema history. Started on Cardizem and hydrochlorothiazide Lower Norvasc due to lymphedema to 5 mg daily (5) Prediabetes: Code(s): R73.03 - Prediabetes Status: Acute Assessment and Plan: Initiate sliding scale insulin, Accu-Cheks, and hypoglycemic protocol. A1c 5.7. On metformin which is continued. DS: Summary Hospital Course Hospital Course: See above Time Spent with Patient Time attestation: Total time spent providing and/or coordinating discharge services: 40 minutes Exam Narrative: General:? No acute distress, alert and oriented per baseline HEENT:? Atraumatic, normocephalic, mucous membranes moist CV:? Regular rate and rhythm, S1, S2 Lungs:? bilateral diminished breath sounds, no respiratory distress, no wheezes Abdomen:? Soft, nontender, nondistended Extremities:? Normal to inspection, bilateral lower extremity nonpitting edema noted Skin:? No rashes noted, no lesions or wounds seen Psych:? Euthymic, normal affect DS: Data Imaging Radiologist's impression: ITS Impressions Chest X-Ray 10/02/21 13:26 IMPRESSION: 1. No acute cardiopulmonary disease. Discharge Plan Discharge Attending physician on discharge: Richard Claudio Discharging Clinician: Richard Claudio Anticipated Discharge Date/Time: 10/04/21 14:18 Patient Disposition: Home Health Service Discharge Instructions: Care Coordination: Patient to have [facility] for PT/OT eval and treat, and fpc. They can be reached at [phone] and will contact you to schedule their first visit. RN Please fax discharge instructions to [phone]. Patient Instructions: Antibiotic Form, How to Stop Smoking (DC) Stand Alone Forms: General Discharge Information Follow-up/Referrals: PHYSICIAN NOT ON STAFF,NONSTAFF [Primary Care Provider] - 1 Week Discharge Medications: New Incruse Ellipta 62.5 mcg/actuation Blister With Device 1 puff inhalation DAILYRT Qty: 1 0RF dexamethasone 2 mg Tablet 6 mg PO DAILY@0800 Qty: 27 0RF hydrochlorothiazide 12.5 mg Capsule 12.5 mg PO QAM Qty: 30 0RF benzonatate 100 mg Capsule 200 mg PO TID PRN (Reason: cough) Qty: 30 0RF diltiazem HCl 120 mg Capsule,Extended Release 24 Hr 120 mg PO QAM Qty: 30 0RF guaifenesin [Mucus Relief ER] 600 mg Tablet Extended Release 12hr 600 mg PO Q12HR Qty: 30 0RF Advair HFA 115-21 mcg/actuation Hfa Aerosol Inhaler 2 puff inhalation Q12HRT Qty: 1 0RF Continued metformin 850 mg tablet 850 mg PO DAILY hydrocodone-acetaminophen 10-325 mg tablet 10 tablet PO TID PRN (Reason: Pain) fluticasone propion-salmeterol [Advair Diskus] 500-50 mcg/
== END 2021-10-04 16:10 | disposition home health service (06) | DRG 178 ==
LOC: ANHED 17:56 → ANH3MED 18:36
PROVIDERS: Student in an Organized Health Care Education/Training Program; Admitting Provider Family Medicine; Emergency Provider Emergency Medicine; Visit Provider Internal Medicine
DX: U07.1 COVID-19 (principal); J44.1 Chronic obstructive pulmonary disease with (acute) exacerbation; Z68.43 Body mass index [BMI] 50.0-59.9, adult; I10 Essential (primary) hypertension; R73.03 Prediabetes; K21.9 Gastro-esophageal reflux disease without esophagitis; E66.01 Morbid (severe) obesity due to excess calories; G47.33 Obstructive sleep apnea (adult) (pediatric); I89.0 Lymphedema, not elsewhere classified; F17.210 Nicotine dependence, cigarettes, uncomplicated; Z90.49 Acquired absence of other specified parts of digestive tract; Z79.84 Long term (current) use of oral hypoglycemic drugs
CPT/HCPCS: 36415; 71045; 80053; 82948; 83036; 83615; 83690; 83735; 84484; 85025; 85380; 85610; 85730; 86140; 93005; 94640; 96361; 96374; 96376; 99285; A9270; C9803; G0378; J0360; J1650; J2930; J7030; J8540; U0003; U0005

== ENCOUNTER 2022-06-11 09:49 | Outpatient (CLI) | payer MEDICARE, MEDICAID, SELFPAY ==
--- NOTE | 2022-06-11 11:00 | NEURO_ITS ---
Impression: # Complains of numbness. Poor pain tolerance, only right upper extremity tested. # Subtle evolving right Carpal Tunnel Syndrome. # Normal needle/EMG exam. # Clinical correlation recommended. Motor Nerve Conduction Upper Extremities Median Nerve Conduction Velocity (m/sec) Terminal Latency (msec) Response Voltage(mV) Elbow-Wrist Wrist Elbow Wrist Right 60 3.8 7 8 Left Ulnar Nerve Conduction Velocity (m/sec) Terminal Latency (msec) Response Voltage(mV) Above Elbow Below Elbow Wrist Above Elbow Below Elbow Wrist Right 58 2.7 5 7 Left F-Wave Latency Median (ms) Ulnar (ms) Right 27.3 28.4 Left Sensory Nerve Conduction Upper Extremities Median Nerve Stimulation Terminal Latency (msec) Wrist/Digit Response Voltage (uV) Wrist Right 3.8/4.0 24/44 Left Ulnar Nerve Stimulation Terminal Latency (msec) Wrist/Digit Response Voltage (uV) Wrist Right 2.7 16 Left Radial Nerve Terminal Latency (msec) Response Voltage(mV) Right 2.2 18 Left Left Right Muscles Examined Fibrillation Fasciculation Scarcity Voltage Duration Left Right Left Right Left Right Left Right Left Right Deltoid Biceps X Brachioradialis Triceps X Pronator Teres X Ext Indicis X Ext Digitorum X Abd Poll Brev X 1st Dorsal Interosseus Abd Dig Min MTDD
== END 2022-06-11 09:50 | disposition home or self-care (01) ==
LOC: ANHNEURO 09:55
PROVIDERS: Visit Provider Orthopaedic Surgery Hand Surgery
DX: G56.01 Carpal tunnel syndrome, right upper limb (principal)
CPT/HCPCS: 95886; 95909

== ENCOUNTER 2022-08-02 14:45 | Outpatient (CLI) | payer MEDICARE, MEDICAID, SELFPAY ==
--- NOTE | ~2022-08-02 | CT_ITS ---
EXAMINATION: CT lumbar spine wo con DATE: 08/02/2022 15:32 INDICATION: Lumbar radiculopathy. TECHNIQUE: Computed tomography (CT) of the lumbar spine was performed without intravenous contrast. A utomated exposure control and iterative reconstruction technique were employed. The dose-length produ ct was 1408.96 mGy-cm. COMPARISON: None FINDINGS: There is 7 degrees dextrocurvature of lumbar spine. There is 3 mm anterolisthesis of L4 on L5. There is mild chronic anterior wedging of T11-L2 vertebral bodies. There is mildly decreased disc height at L2-L3, L3-L4, L4-L5, and L5-S1. The following disc levels are specifically discussed: L1-L2: The disc is bulging. There is moderate bilateral facet joint osteoarthritis. There is mild angelique ateral neural foraminal stenosis. There is mild central canal stenosis. L2-L3: The disc is bulging. There is mild right and moderate left facet joint osteoarthritis. There i s moderate bilateral neural foraminal stenosis. There is moderate central canal stenosis. L3-L4: The disc is bulging. There is mild bilateral facet joint osteoarthritis. There is moderate angelique ateral neural foraminal stenosis. There is mild central canal stenosis. L4-L5: The disc is bulging. There is severe bilateral facet joint osteoarthritis. There is moderate b ilateral neural foraminal stenosis. There is moderate central canal stenosis. L5-S1: The disc is bulging. There is severe bilateral facet joint osteoarthritis. There is mild bilat eral neural foraminal stenosis. There is mild central canal stenosis. IMPRESSION: 1. Moderate lumbar spondylosis. Reviewed, dictated and finalized at location E.
--- NOTE | ~2022-08-02 | CT_ITS ---
EXAMINATION: CT pelvis wo con DATE: 08/02/2022 15:35 INDICATION: Pelvic and perineal pain. TECHNIQUE: Computed tomography (CT) of the pelvis was performed without intravenous contrast. Automat ed exposure control and iterative reconstruction technique were employed. The dose-length product was 1018.71 mGy-cm. COMPARISON: CT abdomen and pelvis 12/21/2013 FINDINGS: There are no dilated loops of bowel. The appendix is normal. There are no pathologically en larged lymph nodes. There is no free intraperitoneal fluid. There is moderate lumbar spondylosis. The re is severe osteoarthritis of right sacroiliac joint and moderate osteoarthritis of left sacroiliac joint. There is severe right hip osteoarthritis and moderate left hip osteoarthritis. IMPRESSION: 1. Polyarticular osteoarthritis. Reviewed, dictated and finalized at location E.
== END 2022-08-02 14:46 | disposition home or self-care (01) ==
PROVIDERS: Visit Provider Physical Medicine & Rehabilitation
DX: R10.2 Pelvic and perineal pain (principal); M54.16 Radiculopathy, lumbar region; M43.06 Spondylolysis, lumbar region; M47.898 Other spondylosis, sacral and sacrococcygeal region
CPT/HCPCS: 72131; 72192

== ENCOUNTER 2023-10-15 17:47 | Observation (INO) | payer MEDICARE, MEDICAID, SELFPAY ==
--- NOTE | ~2023-10-15 | CT_ITS ---
EXAMINATION: CT soft tissue neck chest wo DATE: 10/16/2023 09:31 INDICATION: Angioedema. TECHNIQUE: Computed tomography (CT) of the neck and chest was performed with 75 mL Omnipaque-350 intr avenous contrast. Automated exposure control and iterative reconstruction technique were employed. Th e dose-length product was 1366.41 mGy-cm. COMPARISON: None FINDINGS: CT NECK: There are likely changes of right ocular lens replacement surgery. There are no pathological ly enlarged lymph nodes. The pharynx and larynx are unremarkable. There is mild cervical spondylosis. There is a right mastoid effusion. CT CHEST: There is mild atelectasis on the left. No pleural effusion. The heart size is normal. There are coronary artery calcifications. No pericardial effusion. There are changes of cholecystectomy. T here is mild thoracic spondylosis. IMPRESSION: 1. No imaging findings of angioedema. Reviewed, dictated and finalized at location A.
--- NOTE | ~2023-10-15 | XR_ITS ---
EXAMINATION: XR chest 1V portable Exam Date/Time: 10/15/2023 18:20 CDT HISTORY: wheezing Comparison: 10/02/2021. RESULT: Lines, tubes, and devices: None. Lungs and pleura: Lordotic positioning. Low volumes. Suboptimal penetration. Lungs are clear. Cardiomediastinal silhouette: Stable. Other: No acute osseous or upper abdominal finding. IMPRESSION: No acute cardiopulmonary process. Reviewed, dictated and finalized at location K.
[2023-10-15 17:50] VITALS: BP 166/77; PULSE 94; RESP 16; TEMP 36.6; O2SAT 100
--- NOTE | 2023-10-15 18:05 | ED.ALLEREA ---
HPI - Allergic Reaction General Chief complaint: Allergic Reaction <JAZZMINE Laguna Last Filed: 10/16/23 02:28> Stated complaint: swelling to tongue <JAZZMINE Laguna Last Filed: 10/16/23 02:28> Time Seen by Provider: 10/15/23 18:01 <JAZZMINE Laguna Last Filed: 10/16/23 02:28> Source: patient <JAZZMINE Laguna Last Filed: 10/16/23 02:28> Mode of arrival: ambulatory <JAZZMINE Laguna Last Filed: 10/16/23 02:28> Limitations: no limitations <JAZZMINE Laguna Last Filed: 10/16/23 02:28> History of Present Illness HPI narrative: This is a 52-year-old female who presents to the ED with chief complaint of tongue swelling x2 days. Reports some throat tightness as well. States that she started amlodipine this month but the symptoms have really only present in the last couple of days. States that the swelling was noticed yesterday but worsened today. denies rash, nausea, vomiting, chest pain. Endorses some wheezing but has COPD and chronic wheezes. Denies any other known exposure to allergen. <JAZZMINE Laguna Last Filed: 10/16/23 02:28> Related Data Home medications: Home Medications Medication Instructions Recorded Confirmed albuterol sulfate 90 mcg/actuation 2 inh inhalation QID PRN SOB 01/12/20 10/15/23 aerosol inhaler (Ventolin HFA) hydrocodone 10 mg-acetaminophen 10 tablet PO TID PRN Pain 01/12/20 10/15/23 325 mg tablet ergocalciferol (vitamin D2) 1,250 50,000 unit PO WEEKLY 09/24/20 10/15/23 mcg (50,000 unit) capsule (Vitamin D2) omeprazole 20 mg capsule,delayed 20 mg PO DAILY 09/24/20 10/15/23 release furosemide 40 mg tablet 40 mg PO DAILY 10/15/23 10/15/23 <JAZZMINE Laguna Last Filed: 10/16/23 02:28> Allergies/adverse reactions: Allergies Allergy/AdvReac Type Severity Reaction Status Date / Time haloperidol Allergy Severe Unknown Verified 10/02/21 12:39 Penicillins Allergy Mild HIVES, Verified 10/02/21 12:39 ITCHING amoxicillin Allergy Unknown HIVES, Verified 10/02/21 12:39 ITCHING Sulfa (Sulfonamide Allergy Unknown HIVES, Verified 10/02/21 12:39 Antibiotics) ITCHING amlodipine Allergy Swelling Verified 10/16/23 01:13 Contrast Media Allergy Unknown HIVES Uncoded 10/02/21 12:39 <Pascual Fang PA-C - Last Filed: 10/16/23 02:28> Review of Systems Review of Systems: All systems as dictated in HPI <Pascual Fang PA-C - Last Filed: 10/16/23 02:28> [facility] Past Medical History Medical History: Medical History (Updated 10/15/23 @ 22:07 by Pascual Fang PA-C) Anxiety Chronic obstructive pulmonary disease Gastroesophageal reflux disease Hypertension Morbid obesity Obstructive sleep apnea Prediabetes Tobacco abuse <Pascual Fang PA-C - Last Filed: 10/16/23 02:28> Surgical History Surgical History: Surgical History (Updated 10/02/21 @ 22:43 by Tracey Goldsmith PA-C) History of arthroscopy of both knees History of cholecystectomy History of detached retina repair History of endometrial ablation History of salpingectomy Related to ectopic . History of tubal ligation <Pascual Fang PA-C - Last Filed: 10/16/23 02:28> Family History Family History: Family History Father Lung cancer Hypertension Mother Hypertension Depression Heart disease Thyroid disorder Sibling Hypertension Depression Heart disease Thyroid disorder Other Hypertension Grandparent Carcinoma of colon Hypertension Grandparent Hypertension <Pascual Fang PA-C - Last Filed: 10/16/23 02:28> Social History Social History: Social History (Updated 10/02/21 @ 22:44 by Tracey Goldsmith PA-C) Social History: Surrogate medical decision maker: Linda Conley, daughter. Code status: Smoking packs per day: 0.5 Smoking cigarettes per day: 10.0 Years smoked: 25 Smoking pack-years:
[2023-10-15] MEDS: methylPREDNISolone SOD SUCC 40 MG VIAL IV PUSH (18:09)
[2023-10-15] MEDS: diphenhydrAMINE HCl INJ 50 MG/ML VIAL 25 MG IV PUSH (18:09)
[2023-10-15] MEDS: FAMOTIDINE 20 MG/2 ML VIAL IV PUSH (18:09)
[2023-10-15] MEDS: SODIUM CHLORIDE 0.9% IV 1,000 ML 999 ML IV CONT (18:10)
[2023-10-15 18:12] LABS: Basophils Percent Auto 0.4 % (0.2-1.2); Immature Granulocyte Absolute 0.02 K/mm3 (0.00-0.031); Immature Granulocyte Percent A 0.3 % (0-0.5); Lymphocytes Absolute Auto 2.79 K/mm3 (0.9-3.2); Lymphocytes Percent Auto 36.1 % (18.3-44.2); Mean Corpuscular HGB Conc 31.8 g/dl (32-36); Mean Corpuscular Hemoglobin 27.2 pg (26-34); Mean Corpuscular Volume 85.4 fl (80-100); Mean Platelet Volume 10.7 fl (7.4-10.4); Monocytes Absolute Auto 0.4 K/mm3 (0.1-0.6); Monocytes Percent Auto 5.6 % (2.6-8.5); Neutrophils Absolute Auto 4.5 K/mm3 (1.3-6.7); Neutrophils Percent Auto 57.6 % (45.5-73.1); Platelet Count Result 358 k/mm3 (150-375); Red Blood Count 5.15 M/mm3 (4.2-5.4); Red Cell Distribution Width 15.2 % (11.5-14.5); White Blood Count 7.7 K/mm3 (4.5-10.0)
[2023-10-15] MEDS: EPINEPHrine HCL INJ 1 MG/ML AMPUL 0.3 MG IM (18:19)
[2023-10-15 18:20] VITALS: BP 145/99; PULSE 85; RESP 19; O2SAT 96; O2SAT 98
[2023-10-15 18:22] LABS: Alanine Aminotransferase 23 U/L (6-35); Albumin Level 4.4 g/dL (3.5-5.1); Alkaline Phosphatase 80 U/L (38-126); Anion Gap 11 mmol/L (4-12); Aspartate Amino Transferase 30 U/L (14-36); Bilirubin,Total 0.3 mg/dL (0.2-1.3); Blood Urea Nitrogen 7 mg/dL (7-17); Calcium 9.5 mg/dL (8.4-10.2); Carbon Dioxide 24 mmol/L (22-30); Chloride 104 mmol/L (98-107); Estimated CRCL calculation 115 ml/min; Estimated Glomerular Filt Rate > 60; Glucose 128 mg/dL (65-110); Potassium 3.8 mmol/L (3.4-5.0); Sodium 139 mmol/L (137-145)
[2023-10-15] MEDS: ALBUTEROL SULFATE NEB 2.5 MG/3 ML INH 10 MG INHALATION (18:48)
[2023-10-15] MEDS: IPRATROPIUM BR 0.02% INH SOLN 0.5 MG/2.5 ML VIAL 1 MG INHALATION (18:49)
[2023-10-15 18:52] VITALS: PULSE 85; RESP 21
[2023-10-15] MEDS: KETOROLAC 30 MG/ML VIAL (*BKC) IV PUSH (19:47)
[2023-10-15 19:54] VITALS: PULSE 78; RESP 19
--- NOTE | 2023-10-15 22:29 | PM.IMHP ---
H&P: HPI History of Present Illness Date/Time: 10/15/23 22:29 Chief Complaint: Shortness of breath Narrative: This is a 52-year-old female present to the ED with complaint of tongue swelling and some shortness of breath and throat discomfort. Patient stated that she was started on amlodipine this month started having some problem since past day or so. She stopped taking her amlodipine initially but started back again today. The swelling worsened and hence came to the ER for evaluation. She reports some discomfort in her throat some wheezing but does have history of asthma. She denies any rash nausea vomiting chest pain. In the ED she was noted to have swelling in her lip and tongue. Her lungs were clear to auscultation and saturations were maintained. Laboratory evaluation showed WBC of 7.7 hemoglobin of 14 came panel was within normal limit. Angioedema suspected and she received a dose of epinephrine along with Solu Medrol. She is feeling better in terms of swelling. She still has this throat discomfort. She is admitted for observation Review of Systems Review of Systems: - CONSTITUTIONAL: Denies weight loss, fever and chills. - HEENT: Denies changes in vision and hearing - RESPIRATORY: Reports SOB and cough. - CV: Denies palpitations and CP. - GI: Denies abdominal pain, nausea, vomiting and diarrhea. - : Denies dysuria and urinary frequency. - MSK: Denies myalgia and joint pain. - SKIN: Denies rash and pruritus. - NEUROLOGICAL: Denies headache and syncope. - PSYCHIATRIC: Denies recent changes in mood. Denies anxiety and depression. [facility] Past Medical History Medical History (Updated 10/15/23 @ 22:07 by Pascual Fang PA-C) Anxiety Chronic obstructive pulmonary disease Gastroesophageal reflux disease Hypertension Morbid obesity Obstructive sleep apnea Prediabetes Tobacco abuse Surgical History Surgical History (Updated 10/02/21 @ 22:43 by Tracey Goldsmith PA-C) History of arthroscopy of both knees History of cholecystectomy History of detached retina repair History of endometrial ablation History of salpingectomy Related to ectopic . History of tubal ligation Family History Family History Father Lung cancer Hypertension Mother Hypertension Depression Heart disease Thyroid disorder Sibling Hypertension Depression Heart disease Thyroid disorder Other Hypertension Grandparent Carcinoma of colon Hypertension Grandparent Hypertension Social History Social History (Updated 10/02/21 @ 22:44 by Tracey Goldsmith PA-C) Social History: Surrogate medical decision maker: Linda Conley, daughter. Code status: Smoking packs per day: 0.5 Smoking cigarettes per day: 10.0 Years smoked: 25 Smoking pack-years: 12.50 Smoking status: Current every day smoker Tobacco type: cigarettes Alcohol intake: never Substance use: never Substance use type: does not use Living arrangements: with family Additional occupation/education comments: Disabled. Spiritual care concerns: No Meds Home Medications and Allergies Home Medications Medication Instructions Recorded Confirmed Type albuterol sulfate 90 mcg/actuation 2 inh inhalation QID PRN SOB 01/12/20 10/02/21 History aerosol inhaler (Ventolin HFA) fluticasone 500 mcg-salmeterol 50 1 inh inhalation 2XD 01/12/20 10/02/21 History mcg/dose blistr powdr for inhalation (Advair Diskus) hydrocodone 10 mg-acetaminophen 10 tablet PO TID PRN Pain 01/12/20 10/02/21 History 325 mg tablet metformin 850 mg tablet 850 mg PO DAILY 01/12/20 10/02/21 History montelukast 10 mg tablet 10 mg PO DAILY 01/12/20 10/02/21 History (Singulair) diazepam 5 mg tablet (Valium) 5 mg PO 3XD PRN Anxiety 09/24/20 10/02/21 History ergocalciferol (vitamin D2) 1,250 50,000 unit PO WEEKLY 09/24/20 10/02/21 History mcg (50,000 unit) capsule
[2023-10-15 22:43] VITALS: BMI 58.1
--- NOTE | 2023-10-15 22:47 | ADMGEN ---
This patient, Fariba Conley, was admitted to Medical Room 348-01. Patient/family oriented to hospital policies and general routines including ID bracelet, bed and alarms, visiting hours, pain management, procedures, bathroom and other care routines, personal items, smoking policy, room service/diet, and visiting hours. Information on how to activate the Rapid Response Team has been discussed. Patient/Family are encouraged to report perceived risks to care and to ask questions if they do not understand what they are told or what they should do.
[2023-10-15 22:59] VITALS: BP 172/84; PULSE 76; RESP 20; TEMP 36.9; O2SAT 95
[2023-10-15 23:09] VITALS: BP 172/84; PULSE 76; RESP 20; TEMP 36.9; O2SAT 95
[2023-10-16] VITALS (10 sets, daily range): BP systolic 157–189; BP diastolic 82–93; PULSE 56–79; RESP 16–22; TEMP 36.1–37; O2SAT 96–98
[2023-10-16] MEDS: methylPREDNISolone SOD SUCC 40 MG VIAL IV PUSH ×4 (00:53→21:01)
[2023-10-16] MEDS: ACETAMINOPHEN 325 MG TABLET 650 MG PO ×3 (05:22→21:01)
[2023-10-16] MEDS: diphenhydrAMINE HCl CAP 25 MG CAPSULE PO (05:29)
[2023-10-16] MEDS: IPRATROPIUM 0.5 MG/ALBUTEROL SULFATE 2.5 MG AMPUL.NEB 3 ML INHALATION ×3 (08:17→20:06)
[2023-10-16] MEDS: ENOXAPARIN 40 MG/0.4 ML SYRINGE SUB-Q (08:32)
[2023-10-16 08:38] LABS: Basophils Percent Auto 0.1 % (0.2-1.2); Hematocrit 41.6 % (37.0-47.0); Hemoglobin 12.8 g/dL (12.0-15.0); Immature Granulocyte Absolute 0.06 K/mm3 (0.00-0.031); Immature Granulocyte Percent A 0.8 % (0-0.5); Lymphocytes Absolute Auto 1.32 K/mm3 (0.9-3.2); Lymphocytes Percent Auto 17.5 % (18.3-44.2); Mean Corpuscular HGB Conc 30.8 g/dl (32-36); Mean Corpuscular Hemoglobin 26.5 pg (26-34); Mean Corpuscular Volume 86.1 fl (80-100); Mean Platelet Volume 11.1 fl (7.4-10.4); Monocytes Absolute Auto 0.1 K/mm3 (0.1-0.6); Monocytes Percent Auto 1.5 % (2.6-8.5); Neutrophils Percent Auto 80.1 % (45.5-73.1); Platelet Count Result 323 k/mm3 (150-375); Red Blood Count 4.83 M/mm3 (4.2-5.4); Red Cell Distribution Width 15.3 % (11.5-14.5); White Blood Count 7.5 K/mm3 (4.5-10.0)
[2023-10-16 08:48] LABS: Alanine Aminotransferase 23 U/L (6-35); Albumin Level 4.4 g/dL (3.5-5.1); Alkaline Phosphatase 69 U/L (38-126); Anion Gap 12 mmol/L (4-12); Aspartate Amino Transferase 24 U/L (14-36); Bilirubin,Total 0.4 mg/dL (0.2-1.3); Blood Urea Nitrogen 9 mg/dL (7-17); Calcium 9.3 mg/dL (8.4-10.2); Carbon Dioxide 24 mmol/L (22-30); Chloride 104 mmol/L (98-107); Estimated CRCL calculation 130 ml/min; Estimated Glomerular Filt Rate > 60; Glucose 137 mg/dL (65-110); Potassium 4.3 mmol/L (3.4-5.0); Sodium 140 mmol/L (137-145)
--- NOTE | 2023-10-16 10:02 | PM.IMPN ---
Progress Note: A&P Assessment and Plan (1) Angioedema: Code(s): T78.3XXA - Angioneurotic edema, initial encounter Status: Acute Assessment and Plan: 10/16/23: Patient received epinephrine and Solu-Medrol while in the ED Continue Solu-Medrol CT of the neck did not show any angioedema Airway is crowded likely secondary to body habitus Wheezing noted however no stridor (2) Chronic obstructive pulmonary disease: Code(s): J44.9 - Chronic obstructive pulmonary disease, unspecified Status: Acute Assessment and Plan: 10/16/23: Continue DuoNeb treatments Continue Solu-Medrol will decrease to 40 mg b.i.d. Patient started on Singulair, Claritin, guaifenesin, Flonase (3) Prediabetes: Code(s): R73.03 - Prediabetes Status: Acute Assessment and Plan: 10/16/23: Blood sugars ranging 128-137 Hgb A1C 5.7 back in 2021 Will repeat hemoglobin A1c today Accu checks AC/HS Low-dose SSI ordered hypoglycemic protocol in place Diabetic diet ordered Patient not on any home medication (4) Hypertension: Code(s): I10 - Essential (primary) hypertension Status: Acute Assessment and Plan: 10/16/23: Blood pressure ranging 145/99 to 187/84 Amlodipine discontinued due to angioedema Will start verapamil instead Continue to watch for S/S of adverse reaction Time Spent With Patient Time with patient: Greater than 35 minutes Subjective Date/time seen: 10/16/23 10:02 Interval history: This is a 52-year-old female presented to the hospital on 10/15/2023 with shortness of breath/angioedema. Workup in the hospital included chest x-ray which was negative. Initial labs were essentially unremarkable. She was given a dose of epinephrine, Pepcid, Benadryl, Solu-Medrol while in the ED. she was sent to an inpatient floor and was continued on Solu-Medrol IV. We did a CT of the soft tissue of the neck today which was negative for angioedema. Patient denies any fever, chills, nausea, vomiting, diarrhea, abdominal pain, chest pain, shortness a breath, headache. She does report a productive cough over the last few days. Review of Systems Review of Systems: All systems reviewed & are unremarkable except as noted in HPI and below Constitutional: Constitutional: Reports as per HPI and Reports no additional constitutional complaints Eyes: Eyes: Reports as per HPI and Reports no additional eye complaints ENT: Reports system reviewed and no additional complaints, except as documented and Reports as per HPI Cardiovascular: Cardiovascular: Reports as per HPI and Reports no additional cardiovascular complaints Respiratory: Respiratory: Reports as per HPI and Reports no additional respiratory complaints Gastrointestinal: Gastrointestinal: Reports as per HPI and Reports no additional gastrointestinal complaints Genitourinary: Genitourinary: Reports no additional female genitourinary complaints and Reports as per HPI Musculoskeletal: Musculoskeletal: Reports no additional musculoskeletal complaints and Reports as per HPI Integumentary/Breasts: Skin/Breast: Reports system reviewed and no additional complaints, except as docu and Reports as per HPI Neurologic: Reports system reviewed and no additional complaints, except as documented and Reports as per HPI Psychiatric: Psychiatric: Reports no additional psychiatric complaints and Reports as per HPI Exam Narrative: General: In no acute distress, well nourished Head: atraumatic, no encephalopathy Eyes: EOMI, PERRLA, sclera clear ENT: moist mucous membranes, nasal passages clear, crowded airway Neck: supple, no JVD, no adenopathy, trachea midline Cardiac: Normal S1 and S2. No murmur, gallops or friction rubs, peripheral pulses intact. Respiratory: Lungs clear with expiratory wheezing, productive cough, no stridor Gastrointestinal: soft, non-distended, non-tender, normoactive bowel sounds. : voiding without difficulty. Extremities: mo
[2023-10-16 10:57] LABS: Hemoglobin A1C 5.9 % (<5.7)
[2023-10-16] MEDS: PANTOPRAZOLE 40 MG TABLET PO (12:09)
[2023-10-16] MEDS: LORATADINE 10 MG TABLET PO (12:09)
--- NOTE | 2023-10-16 15:05 | PC.NURSE ---
Patient refusing verapamil until she speaks with hospitalist.
--- NOTE | 2023-10-16 16:50 | PC.NURSE ---
silverware supervisor called commercial loan underwriter reporting patient called c/o choking, short of breath, no one is helping her . Inspector Mechanical went to assess patient, patient is able to talk to commercial loan underwriter, reports she is choking and S.O. B. and being treated like a dog . Inspector Mechanical assessed patient reports tongue is no more swollen than since admission, S.O.B has actually improved since admission, reports edema to BLE, observed 1+ BLE non pitting edema ( patient has been sitting in chair legs not elevated), patient state head feels like head gonna pop off RN administered acetaminophen, Patient blood pressure is elevated but patient is refusing blood pressure medication, ALEXIS Ortiz provided education. Patient ultimately is requesting MD to see her, Hospitalist Bertha has left. Inspector Mechanical called Dr. Tobar who is covering and she will be to see patient when she can. Patient is not in any visible distress at this time, appears angry and frustrated because i am only being observed an no one is doing anything . Notified patient MD will be to see her soon.
[2023-10-16 16:58] LABS: Glucose Point of Care 133 mg/dl (65-105)
[2023-10-16 20:29] LABS: Glucose Point of Care 131 mg/dl (65-105)
[2023-10-16] MEDS: MONTELUKAST SODIUM 10 MG TABLET PO (21:01)
[2023-10-16] MEDS: FLUTICASONE PROPIONATE 0.05% NA SPR 16 GM BTL (*BKC) 1 SPRAY NASAL (21:14)
[2023-10-17] MEDS: IPRATROPIUM 0.5 MG/ALBUTEROL SULFATE 2.5 MG AMPUL.NEB 3 ML INHALATION ×2 (02:18→09:01)
[2023-10-17 02:20] VITALS: PULSE 67; RESP 18; O2SAT 95
[2023-10-17 02:27] VITALS: PULSE 72; RESP 18
[2023-10-17] MEDS: ACETAMINOPHEN 325 MG TABLET 650 MG PO (05:03)
[2023-10-17 05:43] LABS: Basophils Percent Auto 0.1 % (0.2-1.2); Hematocrit 40.3 % (37.0-47.0); Hemoglobin 12.4 g/dL (12.0-15.0); Immature Granulocyte Absolute 0.07 K/mm3 (0.00-0.031); Immature Granulocyte Percent A 0.6 % (0-0.5); Lymphocytes Absolute Auto 2.16 K/mm3 (0.9-3.2); Mean Corpuscular HGB Conc 30.8 g/dl (32-36); Mean Corpuscular Hemoglobin 26.5 pg (26-34); Mean Corpuscular Volume 86.1 fl (80-100); Monocytes Absolute Auto 0.5 K/mm3 (0.1-0.6); Monocytes Percent Auto 4.1 % (2.6-8.5); Neutrophils Absolute Auto 8.6 K/mm3 (1.3-6.7); Neutrophils Percent Auto 76.2 % (45.5-73.1); Platelet Count Result 348 k/mm3 (150-375); Red Blood Count 4.68 M/mm3 (4.2-5.4); Red Cell Distribution Width 15.5 % (11.5-14.5); White Blood Count 11.3 K/mm3 (4.5-10.0)
[2023-10-17 05:57] LABS: Albumin Level 4.4 g/dL (3.5-5.1); Alkaline Phosphatase 63 U/L (38-126); Anion Gap 12 mmol/L (4-12); Aspartate Amino Transferase 37 U/L (14-36); Bilirubin,Total 0.5 mg/dL (0.2-1.3); Blood Urea Nitrogen 12 mg/dL (7-17); Calcium 9.2 mg/dL (8.4-10.2); Carbon Dioxide 22 mmol/L (22-30); Chloride 103 mmol/L (98-107); Estimated CRCL calculation 130 ml/min; Estimated Glomerular Filt Rate > 60; Glucose 133 mg/dL (65-110); Potassium 3.9 mmol/L (3.4-5.0); Sodium 137 mmol/L (137-145)
[2023-10-17 06:00] VITALS: BP 167/77; PULSE 62; RESP 20; TEMP 36.9; O2SAT 95
[2023-10-17 06:06] LABS: Alanine Aminotransferase 35 U/L (6-35)
[2023-10-17 08:00] LABS: Glucose Point of Care 118 mg/dl (65-105)
[2023-10-17] MEDS: PANTOPRAZOLE 40 MG TABLET PO (08:30)
[2023-10-17] MEDS: methylPREDNISolone SOD SUCC 40 MG VIAL IV PUSH (08:30)
[2023-10-17] MEDS: FUROSEMIDE 40 MG TABLET PO (08:30)
[2023-10-17] MEDS: LORATADINE 10 MG TABLET PO (08:31)
[2023-10-17] MEDS: ENOXAPARIN 40 MG/0.4 ML SYRINGE SUB-Q (08:34)
[2023-10-17 09:01] VITALS: PULSE 68; RESP 18; O2SAT 98
[2023-10-17 09:10] VITALS: PULSE 70; RESP 18
--- NOTE | 2023-10-17 10:19 | PM.DS ---
DS: Admitting Diagnosis Discharge Date 10/17/23 Admitting Diagnosis Angioedema COPD Pre diabetes Hypertension DS: Discharge Diagnosis Discharge Diagnosis (1) Angioedema: Code(s): T78.3XXA - Angioneurotic edema, initial encounter Status: Acute (2) Chronic obstructive pulmonary disease: Code(s): J44.9 - Chronic obstructive pulmonary disease, unspecified Status: Acute (3) Prediabetes: Code(s): R73.03 - Prediabetes Status: Acute (4) Hypertension: Code(s): I10 - Essential (primary) hypertension Status: Acute DS: Summary Hospital Course Reason for hospitalization: Angioedema COPD Pre diabetes Hypertension Hospital Course: This is a 52-year-old female presented to the hospital on 10/15/2023 with shortness of breath/angioedema. Workup in the hospital included chest x-ray which was negative. Initial labs were essentially unremarkable. She was given a dose of epinephrine, Pepcid, Benadryl, Solu-Medrol while in the ED. she was sent to an inpatient floor and was continued on Solu-Medrol IV. We did a CT of the soft tissue of the neck today which was negative for angioedema. Patient denies any fever, chills, nausea, vomiting, diarrhea, abdominal pain, chest pain, shortness a breath, headache. She does report a productive cough over the last few days. CT of the soft tissue of the neck was negative for any angioedema. Labs were reviewed and were unremarkable. Vital signs are stable she is afebrile, she is currently room air. Patient was started on verapamil 180 mg extended release daily for blood pressure control she will need to with her primary care physician in 1 week. She will also need an echo in the next 1 week follow-up with cardiology team. She will also need to be referred for outpatient sleep study as she is likely to have obstructive sleep apnea which could be directly related to her uncontrolled hypertension. All of this was discussed with the patient and she agrees with the plan of care. She is stable for discharge at this time. Final diagnosis: Angioedema, anaphylactic allergic reaction Status at Discharge Cognitive/behavioral status at discharge: Alert oriented x3 Functional status at discharge: independent ambulation Overall status at discharge: patient is progressing back to baseline Time Spent with Patient Time attestation: Total time spent providing and/or coordinating discharge services: Time spent: Greater than 30 minutes Exam Narrative: General: In no acute distress, well nourished ENT: moist mucous membranes, nasal passages clear, crowded airway however I do see the back of her throat today Neck: supple, Cardiac: Normal S1 and S2. No murmur, gallops or friction rubs, peripheral pulses intact. Respiratory: Lungs clear with expiratory wheezing, productive cough, no stridor, no acute respiratory distress, currently on room air Extremities: Generalized edema nonpitting Skin: clean, dry, intact. No wounds or lesions. Neuro: Alert and oriented x4 DS: Data Data Completed and Pending Completed studies during hospitalization: Chest x-ray Neck/chest CT Pending studies at discharge: None Labs on day of discharge: Labs from last 24 hours 10/17/23 10/17/23 10/16/23 07:56 05:34 19:47 WBC 11.3 H RBC 4.68 Hgb 12.4 Hct 40.3 MCV 86.1 MCH 26.5 MCHC 30.8 L RDW 15.5 H Plt Count 348 MPV 11.0 H Immature Gran % (Auto) 0.6 H Neut % (Auto) 76.2 H Lymph % (Auto) 19.0 [place] % (Auto) 4.1 Eos % (Auto) 0.0 Baso % (Auto) 0.1 L Lymph # (Auto) 2.16 [place] # (Auto) 0.5 Eos # (Auto) 0.0 Baso # (Auto) 0.0 Abs Immat Gran (auto) 0.07 H Absolute Neuts (auto) 8.6 H Absolute Nucleated RBC 0.000 Nucleated RBC % 0.0 Sodium 137 Potassium 3.9 Chloride 103 Carbon Dioxide 22 Anion Gap 12 BUN 12 Creatinine 0.70 Estim Creat Clear Calc 130 Estimated GFR > 60 Glucose 1
--- NOTE | 2023-10-17 12:25 | PC.NURSE ---
Pt provided with lots of education regarding her medications at discharge. Pt reminded that not all medications are crushable and to be careful when doing so. Pt discharge instructions gone over thoroughly and all questions answered. Pt is aware that she needs to schedule appts with cardio, pulm, and primary. Pt aware that she needs to get an echo done with the order we sent with her. And to get a sleep study as soon as possible. Pt verbalizes understanding.
== END 2023-10-17 12:35 | disposition home or self-care (01) ==
LOC: ANHED 22:07 → ANH3MED 22:22
PROVIDERS: Admitting Provider Student in an Organized Health Care Education/Training Program; Emergency Provider Physician Assistant; Visit Provider Nurse Practitioner Acute Care
DX: T78.3XXA Angioneurotic edema, initial encounter (principal); J44.9 Chronic obstructive pulmonary disease, unspecified; I10 Essential (primary) hypertension; G47.33 Obstructive sleep apnea (adult) (pediatric); R73.03 Prediabetes; F41.9 Anxiety disorder, unspecified; K21.9 Gastro-esophageal reflux disease without esophagitis; E66.01 Morbid (severe) obesity due to excess calories; Z68.43 Body mass index [BMI] 50.0-59.9, adult; F17.210 Nicotine dependence, cigarettes, uncomplicated; Z79.84 Long term (current) use of oral hypoglycemic drugs; Z79.51 Long term (current) use of inhaled steroids
CPT/HCPCS: 36415; 70490; 71045; 71250; 80053; 82948; 83036; 85025; 94640; 96361; 96372; 96374; 96375; 96376; 99285; A9270; G0378; J0171; J1200; J1650; J1885; J2919; J7030